=== PATIENT | male | born 2000 | race Caucasian/White ===

== ENCOUNTER 2020-08-11 11:27 | Emergency (ER) | payer OTHER ==
--- NOTE | 2020-08-11 11:56 | RAD ---
Exam:3 views left wrist HISTORY: Fall. Pain. COMPARISON: None FINDINGS: Intercarpal and radiocarpal joint spaces are preserved. No fracture, cortical irregularity or periosteal reaction. IMPRESSION: No posttraumatic change. If there is pain or point tenderness, immobilization and follow- up imaging in 7-10 days.
--- NOTE | 2020-08-11 14:10 | RAD ---
RIGHT WRIST RADIOGRAPHS THREE VIEWS: Date: 08-11-2020 PROVIDED CLINICAL HISTORY: Pain status post injury. FINDINGS: There is a mildly displaced, mildly comminuted intraarticular fracture of the distal radius. No addit ional fracture is evident. Alignment appears otherwise anatomic. Joint spaces appear preserved. IMPRESSION: Mildly displaced intraarticular distal radial fracture. POS: NEO
== END 2020-08-11 13:35 | disposition home or self-care (01) ==
LOC: ERS 11:27
DX: S52.571A Other intraarticular fracture of lower end of right radius, initial encounter for closed fracture (principal); S60.812A Abrasion of left wrist, initial encounter; F41.9 Anxiety disorder, unspecified; F32.9 Major depressive disorder, single episode, unspecified; Z79.899 Other long term (current) drug therapy; V19.9XXA Pedal cyclist (driver) (passenger) injured in unspecified traffic accident, initial encounter
CPT/HCPCS: 29125

== ENCOUNTER 2020-08-16 13:45 | Outpatient (CLI) | payer OTHER ==
[2020-08-16 17:51] LABS: #Basophils 0.1 thou/uL (0.0-0.2); #Eosinphils 0.1 thou/uL (0.0-0.7); #Lymphocytes 2.5 thou/uL (1.20-3.40); #Monocytes 0.8 thou/uL (0.11-0.59); #Neutrophils 6.2 thou/uL (1.40-6.50); %Basophils 0.6 % (0.0-1.0); %Eosinophils 1.3 % (0.0-10.0); %Monocytes 8.4 % (0.0-10.0); %Neutrophils 63.8 % (42.0-75.0); Hemoglobin 15.2 g/dL (14.0-18.0); Mean Corpuscular HGB CONC 35.3 g/dL (32.0-36.0); Mean Corpuscular Hemoglobin 30.6 pg (27.0-31.0); Mean Corpuscular Volume 86.8 fL (78.0-98.0); Mean Platelet Volume 6.6 fL (7.4-10.4); Platelet Count 263 thou/uL (130-400); RBC Distribution Width 11.6 % (11.5-14.5); Red Blood Cell (RBC) Count 4.95 mill/uL (4.70-6.10); White Blood Cell (WBC) Count 9.7 thou/uL (4.8-10.8)
[2020-08-17 12:02] LABS: SARS-CoV-2 MS2 Positive; SARS-CoV-2 N Gene Negative; SARS-CoV-2 S Gene Negative; SARS-CoV-2 by NAA Not Detected (NotDetected); SARS-CoV-2 orf1ab Negative
== END 2020-08-16 13:46 | disposition home or self-care (01) ==
LOC: LABBT 13:45
PROVIDERS: ATTEND Orthopaedic Surgery
DX: Z01.812 Encounter for preprocedural laboratory examination (principal); S52.571A Other intraarticular fracture of lower end of right radius, initial encounter for closed fracture; Z20.828 Contact with and (suspected) exposure to other viral communicable diseases
CPT/HCPCS: 85025; 87635; U0003

== ENCOUNTER 2020-08-20 09:03 | Day surgery (SDC) | payer OTHER ==
[2020-08-19 09:28] VITALS: BMI 36.6
[2020-08-20] MEDS ORDERED: Clindamycin/D5W 600 mg/50 ml Premix Bag ONE (09:40)
[2020-08-20] MEDS ORDERED: Fentanyl 100 MCG/2 ML VIAL ONE ×2 (10:08→10:57)
[2020-08-20] MEDS ORDERED: Midazolam HCl 2 mg/2 ml Vial ONE (10:08)
[2020-08-20] MEDS ORDERED: EPHEDRINE 25 MG/5 ML SYRINGE ONE (12:09)
[2020-08-20] MEDS ORDERED: Ketorolac Tromethamine 30 MG/ML VIAL ONE (12:09)
[2020-08-20] MEDS ORDERED: Lidocaine 1% PF 5 ML VIAL ONE (12:09)
[2020-08-20] MEDS ORDERED: PROPOFOL 200 MG/20 ML VIAL ONE (12:09)
[2020-08-20] MEDS ORDERED: Dexamethasone 20 MG/5 ML VIAL ONE (12:09)
[2020-08-20] MEDS ORDERED: Bupivacaine HCl 0.5%/Epinephrine 1:200,000/PF 30 ml Vial ONE (12:09)
[2020-08-20] MEDS ORDERED: Ondansetron PF 4 MG/2 ML Vial ONE (12:09)
--- NOTE | 2020-08-20 17:02 | RAD ---
FIVE FLUOROSCOPIC SPOT IMAGES OF THE RIGHT WRIST: 08/20/20 INDICATIONS: ORIF right wrist. COMPARISON: Right wrist CT dated 08/16/20. FINDINGS: Since the comparison examination there has been open reduction and internal fixation of the comminute d intra-articular distal radius fracture. Fracture alignment is anatomic. The instrumentation project s in the expected position. Carpal alignment appears within normal limits. The total fluoroscopic janet e is 59.7 seconds. Total exposure is 1.18 mGy. IMPRESSION: ORIF of right wrist. POS: JOSE ALBERTO
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
== END 2020-08-20 16:00 | disposition home or self-care (01) ==
LOC: SDC 09:03
PROVIDERS: ATTEND Orthopaedic Surgery
PROC: 0PSH04Z Reposition Right Radius with Internal Fixation Device, Open Approach (ICD-10-PCS; principal; 2020-08-20)
DX: S52.571A Other intraarticular fracture of lower end of right radius, initial encounter for closed fracture (principal); F32.9 Major depressive disorder, single episode, unspecified; F64.9 Gender identity disorder, unspecified; J30.2 Other seasonal allergic rhinitis; Z79.899 Other long term (current) drug therapy; Z88.8 Allergy status to other drugs, medicaments and biological substances; Z88.0 Allergy status to penicillin
CPT/HCPCS: 76000; C1713; J1100; J1885; J2250; J2405; J2704; J3010; J3490

== ENCOUNTER 2020-10-24 01:20 | Emergency (ER) | payer OTHER ==
[2020-10-24 01:48] LABS: Bilirubin Large (Negative); Blood, Urine Large (Negative); Clarity Hazy (Clear); Glucose, Urine (Dipstick) 100 mg/dL (Negative); Ketone, Urine Negative (Negative); Leukocyte Moderate (Negative); Nitrite Positive (Negative); Protein, Urine (Dipstick) > or equal to 300 mg/dL (Neg-Trace); Urobilinogen 0.2 mg/dL (Less than 2); pH, Urine 7.5 (5.0-9.0)
[2020-10-24 01:49] LABS: Squamous Epithelial None Seen HPF (0-3)
[2020-10-24 01:50] LABS: Bacteria/HPF 1+ HPF (None Seen); RBC/HPF 21-50 HPF (0-3)
== END 2020-10-24 02:16 | disposition home or self-care (01) ==
LOC: ERS 01:20
DX: N30.91 Cystitis, unspecified with hematuria (principal); F32.9 Major depressive disorder, single episode, unspecified; F41.9 Anxiety disorder, unspecified; Z79.899 Other long term (current) drug therapy
CPT/HCPCS: 81003; 81015; 99283